=== PATIENT | male | born 1960 | race Caucasian/White ===

== ENCOUNTER 2017-03-20 13:21 | Inpatient (IN) ==
--- NOTE | 2017-03-20 15:31 | Emergency Department Note ---
Disposition Clinical Impression: Inability to ambulate due to multiple joints Contusion of right knee Qualifiers: Encounter type: initial encounter Qualified Code(s): S80.01XA - Contusion of right knee, initial encounter Disposition: Admitted As Inpatient Condition: Fair Time of Disposition: 16:47 General Adult HPI - General Chief complaint: ED General Medical Stated complaint: Trouble ambulating Time Seen by Provider: 03/20/17 13:29 Source: patient Limitations: no limitations Nursing Notes Reviewed: Yes Vital Signs Reviewed: Yes - History of Present Illness HPI Narrative: The patient has had difficulty ambulating since November and did see his neurologist today and had a EMG performed however when he got home his legs became and continued to be very weak and he did fall onto his right knee but there is no trauma and he is not able to ambulate on his own at this time. Does not feel he is able to take care of himself on his own. He denies any pain in the head, neck, chest, abdomen or back. He denies any localized numbness or weakness of the extremities, slurred speech, facial droop or confusion. Does have some minimal right knee pain. The patient would like to be admitted to the hospital for residential and rehabilitation placement. Social history: No smoking or alcohol or drugs. He is here with his sister and [id number] Pain Scale: 1 - Related Data Home Medications Medication Instructions Recorded Confirmed Aspirin [Aspirin] 81 mg PO DAILY 03/20/17 03/20/17 Chlorthalidone 25 mg PO QAM 03/20/17 03/20/17 Etodolac [Etodolac] 500 mg PO BID 03/20/17 03/20/17 Insulin ASPART [Novolog Flexpen] 20 unit SQ TIDAC 03/20/17 03/20/17 Insulin Glargine,Hum.rec.anlog 100 unit SQ QPM 03/20/17 03/20/17 [Lantus Solostar] Lisinopril [Zestril] 40 mg PO BID 03/20/17 03/20/17 Metformin HCl [Glucophage] 1,000 mg PO BID 03/20/17 03/20/17 Naproxen Sodium [Aleve] 220 mg PO Q12H PRN 03/20/17 03/20/17 Simvastatin [Zocor] 80 mg PO HS 03/20/17 03/20/17 Allergies Allergy/AdvReac Type Severity Reaction Status Date / Time No Known Allergies Allergy Verified 03/20/17 13:32 Review of Systems: Constitutional: No fever Vision: No blurred vision ENT: No rhinorrhea Respiratory: No cough Allergic: No allergies : No blood in urine GI: No blood in stool Hematologic: No bruising Dermatologic: No skin rash Musculoskeletal: + pain in the extremities right knee Neuro: No numbness of the extremities Past Medical History - Past Medical History Medical history: Reports: diabetes, hyperlipidemia, hypertension, other Psychiatric history: Reports: no psych history - Social History Smoking Status: Never smoker Smokeless Tobacco Status: No Alcohol use: Reports: none Drug use: Reports: none Physical Exam CONSTITUTIONAL: Well-appearing; well-nourished; A&O X3, in no apparent distress HEAD: Normocephalic; atraumatic. EYES: PERRL, EOMI, no scleral icterus NOSE: The nose is normal in appearance without rhinorrhea NECK: Supple without rigidity, no MICHI RESP: Normal chest excursion with respiration; breath sounds clear and equal bilaterally; no wheezes, rhonchi, or rales CARD: Regular rhythm, without murmurs, rub or gallop ABD: Non-distended; non-tender, soft, without rigidity, rebound or guarding SKIN: Normal for age and race; warm and dry; no apparent lesions, no rash NEUROLOGICAL: Patient is alert and oriented times three. Cranial nerves III- XII are intact. Sensory and motor functions are intact. Strength is 5/5 for flexion and extension in all 4 extremities. Patellar DTRS are equal and intact. Finger to nose testing is equal and normal bilaterally. Extremities: Minimal abrasion right anterior knee, minimal pain on palpation, good range of motion - General Limitations: no limitations General appearance: alert Course Vital Signs Temperature 99.5 F 03/20/17 13:32 Pulse Rate 100 03/20/17 13:32 Respiratory Rate 20 03/20/17 13:32 Blood Pressure 168/92 03/20/17 13:32 O2 Sat by Pulse Oximetry 97 03/20/17 13:32 Temperature 99.6 F 03/20/17 19:11 Pulse Rate 76 03/20/17 19:11 Respiratory Rate 17 03/20/17 19:11 Blood Pressure 147/81 03/20/17 19:11 O2 Sat by Pulse Oximetry 96 03/20/17 19:11 Oxygen Delivery Oxygen Delivery Room Air Medical Decision Making - MDM Narrative Medical decision making narrative: I will contact the patient's neurologist and they are paged. X-ray of the right knee will be done. The patient does not feel he is able to adequately care for himself at home and does not have [facility] who can care for him. [address] Morrell and he wants pt admitted for upper motor neuron problem and rec MRI brain and c-spine. EMG today was normal. + babinski 1534 I did speak with Dr. Baker the hospitalist who accepts the patient for admission. Inpatient C-spine MRI ordered nasal followed up as an inpatient. [id number]
[2017-03-20] MEDS ORDERED: *HR* LORazepam 2 MG/ML VIAL IVP ONE (19:36)
[2017-03-20] MEDS ORDERED: Ondansetron 4 MG/2 ML VIAL IVP PRN (20:06)
[2017-03-20] MEDS ORDERED: Acetaminophen 325 MG TABLET PO PRN (20:06)
[2017-03-20] MEDS ORDERED: Naloxone 0.4 MG/ML INJ IVP PRN (20:06)
[2017-03-20] MEDS ORDERED: Dextrose Gel 15 GM PO PRN ×2 (20:08)
[2017-03-20] MEDS ORDERED: D5% in Water 1,000 ML IVC PRN (20:08)
[2017-03-20] MEDS ORDERED: *HR* Dextrose 50 % in Water (Syg) 50 ML SYRINGE IVP PRN (20:08)
[2017-03-20] MEDS ORDERED: Insulin LISPRO 300 UNITS/3 ML VIAL SQ SCH (21:00)
[2017-03-20] MEDS ORDERED: *HR* HYDROcodone/Acet 5/325 mg TABLET PO PRN (21:03)
[2017-03-20] MEDS ORDERED: *HR* Morphine 2 MG/ML SYRINGE IVP PRN (21:03)
[2017-03-20] MEDS: Lisinopril 20 MG TABLET PO SCH (22:44)
[2017-03-20] MEDS ORDERED: Aspirin 325 MG TABLET PO ONE (23:15)
--- NOTE | 2017-03-21 00:22 | Internal Med History&Physical ---
Date of Encounter: 03/20/17 Time of Encounter: 21:00 Assessment and Plan (1) CVA (cerebral vascular accident) Current visit: Yes Status: Acute 1 1 patient has been experiencing weakness to the left lower extremity since November however he has had increased weakness and frequent falls in the past few days. MRI completed in December of this year showed no infarct. He did see Dr. Morrell today who performed EMG. After returning home patient was unable to stand then had fallen. MRI was completed which did reveal right frontal lobe , camarena radiata, 3 mm acute infarct. Patient is a candidate for TPA since onset of symptoms occurred at 24 hours ago. We will give aspirin and statin. We will consult neurology NH IS stroke evaluation Continuous cardiac monitoring We will obtain cardiac echo We will obtain carotid Dopplers PT and OT has been consultation Fall precautions Qualifiers: CVA mechanism: unspecified Qualified Code(s): I63.9 - Cerebral infarction, unspecified (2) Weakness of left lower extremity Current visit: Yes Status: Acute 1 patient has been experiencing left lower leg extremity weakness since November. MRI in December completed which showed no acute infarct-MRI of head brain and spine obtained. MRI of the head did reveal right frontal lobe camarena radiata 3 mm acute infarct As well as multifactorial severe central spinal canal stenosis at C3-C4 C4-C5 and C5-C6 and mild to moderate central spinal canal stenosis C6 and C7 cord deformity at C3-C4. 2 neurology has been consult. Stroke workup has been initiated 3 we will consult orthospine i (3) Diabetes mellitus Current visit: Yes Status: Acute Accu-Cheks before meals at bedtime + scale insulin and basal insulin Diabetic diet Qualifiers: Diabetes mellitus type: type 2 Diabetes mellitus complication status: without complication Diabetes mellitus senior living insulin use: with senior living use Qualified Code(s): E11.9 - Type 2 diabetes mellitus without complications ; Z79.4 - assisted (current) use of insulin; Z79.4 - assisted (current) use of insulin; Z79.4 - assisted (current) use of insulin; Z79.4 - assisted ( current) use of insulin (4) DVT prophylaxis Current visit: Yes Status: Acute Lovenox subcutaneous Internal Medicine - H&P: HPI Chief complaint: L lower leg weakness Admitted From: Emergency Dept Plans for Post Hospital Care: Home History of present illness: Mr. Briggs is a 56 year old male past medical history of diabetes hypertension hyperlipidemia she has been experiencing left leg weakness since approximately November of this year. His weakness has progressively worse over time. He says his left leg feels as if it is stuck to the floor. he has undergone physical therapy with minimal improvement. Prior to his weakness patient was working and driving without difficulty. He is now unable to ambulate without walker. He has difficulty transitioning from sitting to standing. He has had multiple falls. He denies any loss of consciousness slurred speech upper extremity weakness. He did have an MRI in December which was negative for any ischemia. He did see neurology today who performed EMG however when he got home his legs became weak and he fell. He has been admitted for further workup and evaluation. MRI head and brain, spine has been obtained. He is hemodynamically stable at this time. I did review this case with Dr. Kirby who agrees with plan Past Med Surg Social Fam HX - Past Medical History Medical history: diabetes, hyperlipidemia, hypertension, other Psychiatric history: no psych history - Social History Smoking Status: Never smoker Smokeless Tobacco Status: No Alcohol use: none Drug use: none - Family History Mother Living Status: Age at : 77 Cause of : foot amputation Hx Family Endocrine Disorder: Yes (diabetes) Hx Family Medical Disorders: Yes (arthritis) Father Living Status: Age at : 81 Cause of : massive heart attack Hx Family Cardiac Disorders: Yes Hx Family Respiratory Disorders: Yes Hx Family Neurologic Disorders: Yes (cva) Internal Medicine - H&P: Meds Aspirin [Aspirin] 81 mg PO DAILY 03/20/17 [History] Chlorthalidone 25 mg PO QAM 03/20/17 [History] Etodolac [Etodolac] 500 mg PO BID 03/20/17 [History] Insulin ASPART [Novolog Flexpen] 20 unit SQ TIDAC 03/20/17 [History] Insulin Glargine,Hum.rec.anlog [Lantus Solostar] 100 unit SQ QPM 03/20/17 [ History] Lisinopril [Zestril] 40 mg PO BID 03/20/17 [History] Metformin HCl [Glucophage] 1,000 mg PO BID 03/20/17 [History] Naproxen Sodium [Aleve] 220 mg PO Q12H PRN 03/20/17 [History] Simvastatin [Zocor] 80 mg PO HS 03/20/17 [History] 3 Allergy/AdvReac Type Severity Reaction Status Date / Time No Known Allergies Allergy Verified 03/20/17 13:32 All Systems PM: A 10-system review of systems was performed and is negative for pertinent findings except as documented above in the HPI. - Constitutional Constitutional: weakness, no chills, no fever(s), no night sweats - EENT Eyes: no change in vision, no discharge, no pain, no photophobia Nose, mouth and throat: no dysphagia, no nasal discharge, no neck pain, no sore throat - Cardiovascular Cardiovascular ROS IM: no chest pain, no diaphoresis, no dyspnea, no lightheadedness, no palpitations, no syncope - Respiratory Respiratory: as per HPI - Gastrointestinal Gastrointestinal: no abdominal pain, no diarrhea, no hematemesis, no hematochezia, no melena, no nausea, no vomiting - Musculoskeletal Musculoskeletal ROS IM: limited range of motion, muscle weakness - Integumentary Integumentary IM: no rash, no unusual bruising - Neurological Neurological ROS: abnormal gait, frequent falls, weakness - Hematologic/Lymphatic Hematologic/Lymphatic: no easy bruising - Constitutional Vitals: Temp Pulse Resp BP Pulse Ox 99.6 F 76 17 147/81 96 03/20/17 19:11 03/20/17 19:11 03/20/17 19:11 03/20/17 19:11 03/20/17 19:11 General appearance: Present: A&O X 3, answers questions appropriately - Head Head exam: Present: atraumatic, normocephalic - Eye Eye exam: Present: PERRL, conjuntiva pink, sclera anicteric Pupils: Present: PERRL - Neck Neck exam general surgery: Present: supple, trachea midline. Absent: lymphadenopathy - Respiratory Respiratory exam: Present: CTAB. Absent: accessory muscle use, rales, rhonchi, wheezes - Cardiovascular Cardiovascular exam: Present: RRR, +S1, +S2. Absent: diastolic murmur, gallop, rubs, systolic murmur - GI/Abdominal GI/Abdominal exam: Present: normal bowel sounds, soft, no peritoneal signs. Absent: distended, tenderness - Extremities Exam Extremities exam: Present: warm, radial pulses palpable and symmetrical. Absent : calf tenderness, cyanotic, pedal edema - Neurological Exam Neurological exam: Present: CN II-XII intact, oriented X3, no focal deficits. Absent: pronater drift, facial droop, speech deficit - Expanded Neurological Exam Neurological exam expanded: Present: ataxia Patient oriented to: Present: person, place, time Cranial Nerves: EOM's intact PM: Normal, gag reflex PM: Normal, nystagmus PM: Normal, tongue deviation PM: Normal Ataxia: Present: yes Cerebellar function: finger to nose: Normal, heel to vega: Abnormal Left, Abnormal Right Sensory exam: LE 2 point discrimination: Normal, lower extremity light touch: Normal, lower extremity pin prick: Normal Neuro motor strength exam: LUE: 5, RUE: 5, LLE: 0, RLE: 2/1 Coma Scale Eye Opening: Spontaneous Coma Scale Motor Response: Obeys Commands Coma Scale Verbal Response: Oriented Coma Scale Total: 15 - Skin Skin exam: Present: dry, intact Internal Med - H&P Results - Diagnostic Studies Other Images Additional comments: Brain MRI 03/20/17 16:40 IMPRESSION: Right frontal lobe, camarena radiata, 3 mm acute infarct. Mild to moderate paranasal sinus mucosal disease. Critical results were called by Dr. Dylan Pizano to Dr. Mejia On 03/20/2017 at 23:04. D/ / 03/20/2017 22:50:49 Dylan callejas Interpreting Provider: Dylan Pizano Cervical Spine MRI 03/20/17 16:40 IMPRESSION: Multifactorial severe central spinal canal stenosis at C3-C4, C4-C5, C5-C6, and mild to moderate central spinal canal stenosis at C6-C7. Cord deformity at C3-C4 through C5-C6 without definite cord signal abnormality. High-grade bilateral foraminal stenosis at these levels further detailed above. D/ / 03/20/2017 22:54:30 Dylan callejas Interpreting Provider: Dylan Pizano Knee X-Ray 03/20/17 16:40 IMPRESSION: 1. No acute osseous abnormality. 2. Moderate tricompartmental osteoarthritis, with severe involvement of the medial joint compartment. 3. Small joint effusion. D/ : / 03/20/2017 17:16:43 Dallin Hawkins MD / Brittani Keyes Interpreting Provider: Dallin Hawkins MD
--- NOTE | 2017-03-21 04:03 | Event Note ---
Date of Encounter: 03/21/17 Time of Encounter: 11:00 Discussed with MARIAH and agree with assessment and plan. Patient with left lower extremity weakness secondary to acute right cerebral infarct on brain MRI per radiologist. Neurology/physical therapy consulted. Treatment as indicated by MARIAH.
[2017-03-21 05:45] LABS: Basophils % 0.3 %; Eosinophils # 0.1 K/mcL (0.0-0.6); Eosinophils % 1.8 %; Hematocrit 37.6 % (37.5-50.1); Hemoglobin 12.2 g/dL (12.9-16.9); Immature Granulocytes % 0.3 % (0-4); Lymphocytes # 1.5 K/mcL (0.6-4.6); Lymphocytes % 20.6 %; Mean Corpuscular HGB Conc 32.4 g/dL (31.6-35.5); Mean Corpuscular Hemoglobin 29.5 pg (28.0-33.3); Monocytes # 0.7 K/mcL (0.0-1.3); Monocytes % 8.9 %; Platelet Count 195 K/mcL (140-400); Red Blood Count 4.13 M/mcL (4.19-5.50); Red Cell Distribution Width 14.2 % (11.5-14.5); Segmented Neutrophils % 68.1 %
[2017-03-21 06:10] LABS: BUN/Creatinine Ratio 24 (6-26); Blood Urea Nitrogen 16 mg/dL (8-26); Calcium 8.9 mg/dL (8.6-10.8); Carbon Dioxide 24 mEq/L (19-29); Chloride 109 mEq/L (98-109); Glucose 134 mg/dL (70-99); Magnesium 1.7 mg/dL (1.6-2.6); Osmolality,Calculated 293 (280-300); Sodium 140 mEq/L (136-145); eGFR For African Americans > 60 (> 60); eGFR For Non-African Americans > 60 (> 60)
[2017-03-21] MEDS ORDERED: *HR* Enoxaparin 40 MG/0.4 ML SYRINGE SQ SCH (07:00)
[2017-03-21] MEDS: Insulin LISPRO 300 UNITS/3 ML VIAL SQ SCH ×3 (08:00→17:38)
[2017-03-21] MEDS: Lisinopril 20 MG TABLET PO SCH (08:12)
[2017-03-21] MEDS ORDERED: Aspirin 81 MG TAB.CHEW PO SCH (09:00)
--- NOTE | 2017-03-21 13:52 | Internal Med Progress Note ---
Date of Encounter: 03/21/17 Time of Encounter: 09:20 - Assessment and plan (1) CVA (cerebral vascular accident) Current Visit: Yes Status: Acute Assessment and plan: Acute CVA right frontal lobe, camarena radiata 3 mm acute infarct - possibly causing the left lower extremity weakness Continue Aspirin, Zocor MRI brain - reviewed EKG - sinus tachycardia Echocardiogram - LVEF 60-65%, moderate LV diastolic dysfunction, normal RV size and function, no valvular dysfunction, no evidence of PFO EMG done as outpatient Neurology consult - pending, consult PT/OT Orthopedic consult for spinal stenosis Cardiac telemetry, labs in a.m., monitor closely, NIH Qualifiers: CVA mechanism: unspecified Qualified Code(s): I63.9 - Cerebral infarction, unspecified (2) Weakness of left lower extremity Current Visit: Yes Status: Acute Assessment and plan: Left lower extremity weakness which has been ongoing since November of this year Cervical spine MRI - multifactorial severe central spinal canal stenosis, cord deformity, high-grade bilateral foraminal stenosis Orthopedics consult pending (3) Contusion of right knee Current Visit: Yes Status: Acute Assessment and plan: Mild contusion of right knee - secondary to fall X-ray right knee - no acute osseous abnormality, tricompartmental osteoarthritis Continue [place] as needed, [place] Qualifiers: Encounter type: initial encounter Qualified Code(s): S80.01XA - Contusion of right knee, initial encounter (4) Diabetes mellitus Current Visit: Yes Status: Chronic Assessment and plan: Type 2 diabetes mellitus, insulin-dependent, hyperglycemia Continue insulin sliding scale, Levemir, glucose checks Restart Metformin on discharge Qualifiers: Diabetes mellitus type: type 2 Diabetes mellitus complication status: without complication 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 use Qualified Code(s): E11.9 - Type 2 diabetes mellitus without complications ; Z79.4 - USP (current) use of insulin; Z79.4 - USP (current) use of insulin; Z79.4 - equipment operator intermodal yard (current) use of insulin; Z79.4 - USP ( current) use of insulin (5) Hypertension Current Visit: Yes Status: Chronic Assessment and plan: Essential hypertension, controlled, monitor Continue home dose of Zestril, Chlorthalidone Qualifiers: Hypertension type: essential hypertension Qualified Code(s): I10 - Essential (primary) hypertension (6) Hyperlipidemia Current Visit: Yes Status: Chronic Assessment and plan: Continue home dose of Zocor Qualifiers: Hyperlipidemia type: unspecified Qualified Code(s): E78.5 - Hyperlipidemia , unspecified (7) DVT prophylaxis Current Visit: Yes Status: Acute Assessment and plan: Continue Lovenox subcutaneous - Time Spent With Patient 25 - 35 minutes - Subjective Interval history: Examined this morning. Patient is awake and alert. Not in any distress. Denies chest pain or shortness of breath. No fever. Hemodynamically stable. Tolerating oral diet. Complains of persistent left lower extremity weakness. No aggravating or alleviating factors. No other acute events or complaints. - Constitutional Vitals: Temp Pulse Resp BP Pulse Ox 98.7 F 85 15 145/88 96 03/21/17 08:09 03/21/17 08:09 03/21/17 08:09 03/21/17 08:09 03/21/17 08:09 General appearance: Present: cooperative, A&O X 3, pleasant, no acute distress, obese, answers questions appropriately - Head Head exam: Present: atraumatic - Eye Eye exam: Present: EOMI - ENT ENT exam: Present: mucous membranes moist - Respiratory Respiratory exam: Present: CTAB. Absent: rales, rhonchi, wheezes, tachypnea - Cardiovascular Cardiovascular exam: Present: RRR, +S1, +S2 - GI/Abdominal GI/Abdominal exam: Present: soft. Absent: distended, firm, guarding, tenderness - Extremities Exam Extremities exam: Present: radial pulses palpable and symmetrical. Absent: calf tenderness, cyanotic, pedal edema - Neurological Exam Neurological exam: Present: alert, CN II-XII intact, oriented X3. Absent: pronater drift, facial droop, speech deficit Additional comments: Right upper and lower extremity strength 5/5. Left upper extremity strength 5/ 5. Left lower extremity strength 3/5. 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 Internal Medicine: Result - Labs CBC & Chem 7: 03/21/17 04:49 03/21/17 04:49 Labs: Short CBC 03/21/17 Range/Units 04:49 WBC 7.4 (4.3-11.1) K/mcL Hgb 12.2 L (12.9-16.9) g/dL Hct 37.6 (37.5-50.1) % Plt Count 195 (140-400) K/mcL Neutrophils # 5.0 (1.6-8.9) K/mcL BMP 03/21/17 04:49 Sodium 140 Potassium 4.0 Chloride 109 Carbon Dioxide 24 BUN 16 Creatinine 0.66 L Glucose 134 H Calcium 8.9 Consult Discharge Plan - Plan Referrals: Louis White DO [Primary Care Provider] -
[2017-03-21 14:44] VITALS: BP 147/78
--- NOTE | 2017-03-21 15:22 | Neurology - Consult Note ---
Date of Encounter: 03/21/17 Time of Encounter: 15:17 Assessment and Plan (1) Cervical cord compression with myelopathy Current Visit: Yes Status: Acute This case is a very complicated, and is one that I feel should receive immediate attention. I believe that we are seeing the results of 2 processes. 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 He did not realize that there was such weakness of the upper extremities but in fact there is. 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 In this particular case, I am not as concerned about a central cord syndrome because his slurry control tender strengths are good bilaterally. At the moment he denies any sphincter abnormalities. I am concerned however because he has been falling repeatedly at least 6 times he states since this past November. The MRI scan of the brain also shows a small 3 mm infarct in the right frontal camarena radiata. This is likely an incidental finding because he states that nothing about his strength or sensory perception has changed over the last several days. He does not identify that he is any weaker in the left arm or leg then what he usually is. I would recommend that this gentleman be seen and evaluated by a neurosurgeon/ spine surgeon as soon as possible. In addition, he should probably also receive a stroke workup to rule out carotid artery stenosis. We do not have spine coverage at our facility today. Will discuss case with attending. History of Present Illness HPI: Mr. Briggs is a 56 year old male who is being seen for neurologic consultation secondary to lower extremity weakness. This gentleman was actually seen in the office of Dr. Morrell yesterday for an EMG of the lower extremities. Dr. Morrell study showed evidence of possible left lumbar radiculopathy, possible left lumbar plexopathy. However clinically he saw that the patient had some long track signs and was concerned about the possibility of cervical or thoracic myelopathy. This patient has a history of progressive bilateral lower extremity weakness going on since November of this year. He has had multiple falls over that period of time. The most recent falls were about a week or so ago. 2- 3 days after that he experienced weakness of both lower extremities. Primarily he began experiencing weakness of the left lower extremity. However he apparently injured his right knee when he fell and was experiencing some weakness perhaps likely to that. Historically he denied any weakness of his arms however my examination findings differently. He denies neck pain, he denies back pain. He denies any difficulty with sphincter control. He does have some paresthesias of the left leg he denies a sending paresthesias. He denies any bulbar symptoms. He is a diabetic and has been for about 15 years. MRI scan of the cervical spine reveals severe central canal stenosis at C3-C4, C4-C5, and C5-C6. In addition MRI of the brain was completed which reveals a 3 mm infarct in the right frontal coronal radiata. He denies any headache, he denies speech difficulty, he denies paresthesias of the left upper extremity. Past Med Surg Social Fam HX - Past Medical History Medical history: diabetes, hyperlipidemia, hypertension, other Psychiatric history: no psych history - Social History Smoking Status: Never smoker Smokeless Tobacco Status: No Alcohol use: none Drug use: none - Family History Mother Living Status: Age at : 77 Cause of : foot amputation Hx Family Endocrine Disorder: Yes (diabetes) Hx Family Medical Disorders: Yes (arthritis) Father Living Status: Age at : 81 Cause of : massive heart attack Hx Family Cardiac Disorders: Yes Hx Family Respiratory Disorders: Yes Hx Family Neurologic Disorders: Yes (cva) Medications and Allergies Aspirin [Aspirin] 81 mg PO DAILY 03/20/17 [History] Chlorthalidone 25 mg PO QAM 03/20/17 [History] Etodolac [Etodolac] 500 mg PO BID 03/20/17 [History] Insulin ASPART [Novolog Flexpen] 20 unit SQ TIDAC 03/20/17 [History] Insulin Glargine,Hum.rec.anlog [Lantus Solostar] 100 unit SQ QPM 03/20/17 [ History] Lisinopril [Zestril] 40 mg PO BID 03/20/17 [History] Metformin HCl [Glucophage] 1,000 mg PO BID 03/20/17 [History] Naproxen Sodium [Aleve] 220 mg PO Q12H PRN 03/20/17 [History] Simvastatin [Zocor] 80 mg PO HS 03/20/17 [History] 3 Allergy/AdvReac Type Severity Reaction Status Date / Time No Known Allergies Allergy Verified 03/20/17 13:32 All Systems: A 10-system review of systems was performed and is negative for pertinent findings except as documented above in the HPI. Review of Systems: A 10 point review of systems is consistent with a history of present illness and is otherwise negative. Physical Examination - Vital Signs Vital Signs: Initial Vital Signs Temp Pulse Resp BP Pulse Ox 99.5 F 100 20 168/92 97 03/20/17 13:32 03/20/17 13:32 03/20/17 13:32 03/20/17 13:32 03/20/17 13:32 - Constitutional General appearance: comfortable - Neurologic Motor examination - right side: 2/5: tibialis Anterior, toe extension (EHL), 4/5 : biceps, hip flexors, quadriceps, 5/5: deltoids, slurry control tender Motor examination - left side: 2/5: tibialis Anterior, toe extension (EHL), 3/5 : hip flexors, 4/5: biceps, quadriceps, 5/5: deltoids, triceps, slurry control tender Detailed sensory examination: other (Sensation of both upper extremities is normal. There is a significant sensory gradient of the right lower extremity also with involvement of proprioception on the right. There is a sensory gradient of the left lower extremity below the knee as well however proprioception is intact here.) Reflex and gait examination: other (Patient does have a right Babinski. Patellar reflexes are 2+ symmetrically. Achilles reflexes are absent symmetrically.) Mental Status Examination: awake, alert, oriented to person, oriented to place, oriented to time, follows commands appropriately, answers questions appropriately, no agnosia, no aphasia, no aproxia Cranial nerve examination: PERRL, EOMI, visual garza intact, corneal reflexes brisk symmetrically, sensory to face intact, mastication intact, no facial asymmetry is present, no dysarthria, hearing is intact symmetrically, soft palate elevates bilaterally upon phonation, gag reflex intact, flexes SCM and trapezius muscles symmetrically with full power, tongue protrudes midline, no atrophy or facial fasiculations present Cerebellar examination: no dysmetria (He performs finger to nose without difficulty.), performs finger to nose and heel to vega symmetrically without ataxia, no gait ataxia, no truncal ataxia, no difficulty with rapid alternating movements Results - Laboratory Findings CBC and BMP: 03/21/17 04:49 03/21/17 04:49 Abnormal lab findings: Abnormal lab results RBC 4.13 M/mcL (4.19-5.50) L 03/21/17 04:49 Hgb 12.2 g/dL (12.9-16.9) L 03/21/17 04:49 Creatinine 0.66 mg/dL (0.72-1.25) L 03/21/17 04:49 Glucose 134 mg/dL (70-99) H 03/21/17 04:49 POC Glucose 147 (58-89) H 03/21/17 11:53 Consult Discharge Plan - Plan Referrals: Louis White DO [Primary Care Provider] -
--- NOTE | 2017-03-21 16:26 | Discharge Summary ---
Date of Encounter: 03/21/17 Time of Encounter: 16:00 - Discharge Diagnosis (1) Weakness of left lower extremity Priority: Primary Status: Acute Comments: Left lower extremity weakness which has been intermittent since November of this year - but had more acute symptoms last night - he does have a history of recurrent falls Patient does have compressive myelopathy at C3-C4, C4-C5 and C5-C6 - patient also has mild bilateral upper extremity weakness, superimposed sensory motor polyneuropathy due to diabetes. Possible central cord syndrome. No syncopal abnormalities. Patient does have repeated falls. Cervical spine MRI - multifactorial severe central spinal canal stenosis, cord deformity, high-grade bilateral foraminal stenosis EMG done as outpatient - evidence of possible left lumbar radiculopathy, possible left lumbar plexopathy Neurology consult - recommendations reviewed No spinal surgery coverage today or tomorrow Anticipate transfer to [place] under neurosurgery today - accepted for transfer, awaiting bed (2) CVA (cerebral vascular accident) Priority: Primary Status: Acute Comments: Acute CVA right frontal lobe, camarena radiata 3 mm acute infarct - possibly causing the left lower extremity weakness Continue Aspirin, Zocor MRI brain - reviewed EKG - sinus tachycardia Echocardiogram - LVEF 60-65%, moderate LV diastolic dysfunction, normal RV size and function, no valvular dysfunction, no evidence of PFO EMG done as outpatient Neurology consult - recommendations reviewed consult PT/OT, Orthopedic consult for spinal stenosis - no spinal surgery coverage today monitor closely, [facility] Anticipate patient transfer to [place] today Qualifiers: CVA mechanism: unspecified Qualified Code(s): I63.9 - Cerebral infarction, unspecified (3) Contusion of right knee Priority: Primary Status: Acute Comments: Mild contusion of right knee - secondary to fall X-ray right knee - no acute osseous abnormality, tricompartmental osteoarthritis Continue Marcellus as needed, Voltaren Qualifiers: Encounter type: initial encounter Qualified Code(s): S80.01XA - Contusion of right knee, initial encounter (4) Diabetes mellitus Priority: Primary Status: Chronic Comments: Type 2 diabetes mellitus, insulin-dependent, hyperglycemia Has been on insulin sliding scale, Levemir in the hospital Restart Metformin, home dose of Insulin on discharge Qualifiers: Diabetes mellitus type: type 2 Diabetes mellitus complication status: without complication Diabetes mellitus fpc insulin use: with fpc use Qualified Code(s): E11.9 - Type 2 diabetes mellitus without complications ; Z79.4 - terminologist (current) use of insulin; Z79.4 - terminologist (current) use of insulin; Z79.4 - residential (current) use of insulin; Z79.4 - terminologist ( current) use of insulin (5) Hypertension Priority: Primary Status: Chronic Comments: Essential hypertension, controlled, monitor Continue home dose of Zestril, Chlorthalidone Qualifiers: Hypertension type: essential hypertension Qualified Code(s): I10 - Essential (primary) hypertension (6) Hyperlipidemia Priority: Primary Status: Chronic Comments: Continue home dose of Zocor Qualifiers: Hyperlipidemia type: unspecified Qualified Code(s): E78.5 - Hyperlipidemia , unspecified (7) DVT prophylaxis Priority: Primary Status: Acute Comments: Continue Lovenox subcutaneous - Discharge Medications Prescriptions: Aspirin 81 mg PO DAILY #30 tab.chew Home Medications: Chlorthalidone 25 mg PO QAM 03/20/17 [History] Etodolac 500 mg PO BID 03/20/17 [History] Insulin ASPART [Novolog Flexpen] 20 unit SQ TIDAC 03/20/17 [History] Insulin Glargine,Hum.rec.anlog [Lantus Solostar] 100 unit SQ QPM 03/20/17 [ History] Lisinopril [Zestril] 40 mg PO BID 03/20/17 [History] Metformin HCl [Glucophage] 1,000 mg PO BID 03/20/17 [History] Naproxen Sodium [Aleve] 220 mg PO Q12H PRN 03/20/17 [History] Simvastatin [Zocor] 80 mg PO HS 03/20/17 [History] Aspirin 81 mg PO DAILY #30 tab.chew 03/21/17 [Rx] Allergies/Adverse Reactions: 3 Allergy/AdvReac Type Severity Reaction Status Date / Time No Known Allergies Allergy Verified 03/20/17 13:32 Date of admission: 03/21/17 00:57 Primary care physician: Louis White DO Anticipated date of discharge: 03/21/17 - Patient Status Disposition: Transfer Short-Term Hosp Condition: Fair Functional capacity at discharge: uses cane/walker Overall status at discharge: patient is not back to baseline - Discharge Instructions Follow Up With: Louis White DO [Primary Care Provider] - - Diet and Activity Activity: as per physical therapy, increase activity as tolerated Diet: advance to your usual diet Hospital course: Mr. Briggs is a 56 year old male with past medical history of diabetes, hyperlipidemia and hypertension. He presents to the ED with complaints of left lower leg weakness. Patient was found to have acute CVA in the right frontal lobe seen on brain MRI. 3 mm of acute infarct present. This could possibly cause a left lower weakness. His possibly incidental finding. Echocardiogram shows LVEF 60-65% with no evidence of PFO. EMG was done as outpatient. There is evidence of possible left lumbar radiculopathy and possible left lumbar plexopathy. Cervical spine of the MRI shows severe central spinal canal stenosis and cord deformity with high-grade bilateral foraminal stenosis. No spine surgery coverage until Friday. Dr. Benjamin, neurology has evaluated the patient. He has recommended evaluation by a neurosurgeon or spine surgeon as soon as possible. I have discussed with the patient and his sister regarding his condition and plan of care in detail. They understood and agreed. No unanswered questions. They are willing for transfer to [place] at this time. I have discussed about the patient with the transfer center at [facility], and patient has been accepted for transfer. He will be transported by ambulance. Patient is hemodynamically stable and has no further weakness or numbness at this time. Patient is being transferred in a stable condition. - Time Spent with Patient Total time spent providing and/or coordinating discharge services: Greater than 30 minutes - Constitutional Vitals: Temp Pulse Resp BP Pulse Ox 98.4 F 81 17 147/78 95 03/21/17 14:42 03/21/17 14:42 03/21/17 14:42 03/21/17 14:42 03/21/17 14:42 General appearance: Present: cooperative, A&O X 3, pleasant, no acute distress, obese, answers questions appropriately - Head Head exam: Present: atraumatic - Eye Eye exam: Present: EOMI - ENT ENT exam: Present: mucous membranes moist - Respiratory Respiratory exam: Present: CTAB. Absent: accessory muscle use, rales, rhonchi, wheezes, tachypnea - Cardiovascular Cardiovascular exam: Present: RRR, +S1, +S2 - GI/Abdominal GI/Abdominal exam: Present: soft. Absent: distended, firm, guarding, tenderness - Extremities Exam Extremities exam: Present: radial pulses palpable and symmetrical. Absent: calf tenderness, cyanotic, pedal edema - Neurological Exam Neurological exam: Present: alert, CN II-XII intact, oriented X3. Absent: pronater drift, facial droop, speech deficit Additional comments: Motor examination - right side: 2/5: tibialis Anterior, toe extension (EHL), 4/5 : biceps, hip flexors, quadriceps, 5/5: deltoids, leaf sucker operator Motor examination - left side: 2/5: tibialis Anterior, toe extension (EHL), 3/5 : hip flexors, 4/5: biceps, quadriceps, 5/5: deltoids, triceps, leaf sucker operator Detailed sensory examination: other (Sensation of both upper extremities is normal. There is a significant sensory gradient of the right lower extremity also with involvement of proprioception on the right. There is a sensory gradient of the left lower extremity below the knee as well however proprioception is intact here.) Reflex and gait examination: other (Patient does have a right Babinski. Patellar reflexes are 2+ symmetrically. Achilles reflexes are absent symmetrically.) Mental Status Examination: awake, alert, oriented to person, oriented to place, oriented to time, follows commands appropriately, answers questions appropriately, no agnosia, no aphasia, no aproxia Cranial nerve examination: PERRL, EOMI, visual garza intact, corneal reflexes brisk symmetrically, sensory to face intact, mastication intact, no facial asymmetry is present, no dysarthria, hearing is intact symmetrically, soft palate elevates bilaterally upon phonation, gag reflex intact, flexes SCM and trapezius muscles symmetrically with full power, tongue protrudes midline, no atrophy or facial fasiculations present Cerebellar examination: no dysmetria (He performs finger to nose without difficulty.), performs finger to nose and heel to vega symmetrically without ataxia, no gait ataxia, no truncal ataxia, no difficulty with rapid alternating movements
[2017-03-21] MEDS ORDERED: Insulin DETEMIR 100 UNIT/ML X5UNITS SQ SCH (18:00)
== END 2017-03-21 19:05 | disposition short-term general hospital (02) | DRG 45 ==
LOC: EMEROO 13:21 → 3NENU 13:21
PROVIDERS: ADMIT Family Medicine; ATTEND Student in an Organized Health Care Education/Training Program